=== PATIENT | female | born 1950 | race Caucasian/White ===

== ENCOUNTER 2021-03-18 03:02 | Emergency (ER) | payer MEDICARE, SELFPAY ==
--- NOTE | ~2021-03-18 | XR_ITS ---
EXAMINATION: XR CHEST CLINICAL INFORMATION: Dyspnea COMPARISON: None TECHNIQUE: Frontal view of the chest was obtained. FINDINGS: Lungs appear hyperinflated which may reflect underlying COPD. No evidence of pneumothorax, pulmonary edema, or pleural effusions. Cardiac size is within normal limits. Mild aortic calcification is noted. No acute osseous findings are seen. XR/XR chest 1V IMPRESSION: No acute cardiopulmonary findings. Hyperinflated lungs may reflect underlying COPD.
--- NOTE | 2021-03-18 03:06 | ED.WEAKNESS ---
HPI - Weakness General Stated complaint: GENERAL WEAKNESS/POSSIBLE MED REACTION? Time Seen by Provider: 03/18/21 03:04 Source: patient and EMS Mode of arrival: EMS Limitations: no limitations Related Data Allergies Allergy/AdvReac Type Severity Reaction Status Date / Time azithromycin [AZITHROMYCIN] Allergy Severe HIVES Unverified 02/07/20 15:08 ciprofloxacin [CIPROFLOXACIN] Allergy Severe FEET BLACK Unverified 02/07/20 15:08 erythromycin base Allergy Severe HIVES Unverified 02/07/20 15:08 [ERYTHROMYCIN BASE] Penicillins [PENICILLINS] Allergy Severe HIVES Unverified 02/07/20 15:08 sulfamethoxazole Allergy Severe HIVES Unverified 02/07/20 15:08 [From BACTRIM] trimethoprim [From BACTRIM] Allergy Severe HIVES Unverified 02/07/20 15:08
--- NOTE | 2021-03-18 03:13 | ECG_ITS ---
Test Reason : ALLERGIC REACTION Blood Pressure : / mmHG Vent. Rate : 077 BPM Atrial Rate : 077 BPM P-R Int : 188 ms QRS Dur : 122 ms QT Int : 444 ms P-R-T Axes : 083 092 088 degrees QTc Int : 502 ms Normal sinus rhythm Rightward axis Intra-ventricular conduction delay Left ventricular hypertrophy with QRS widening and repolarization abnormality ( [place] product ) Cannot rule out Septal infarct (cited on or before 01-JUL-2011) Abnormal ECG When compared with ECG of 01-JUL-2011 15:43, Significant changes have occurred Referred By: Priyanka Levi Electronically Signed By:TORREY COELHO MD
--- NOTE | 2021-03-18 03:15 | ED.ALLEREA ---
HPI - Allergic Reaction General Chief complaint: Allergic Reaction Stated complaint: GENERAL WEAKNESS/POSSIBLE MED REACTION? Time Seen by Provider: 03/18/21 03:04 Source: patient and EMS Mode of arrival: EMS Limitations: no limitations History of Present Illness MD complaint: allergic reaction and hives Onset (ago): hour(s) (1) Exposure: medication (just started diclofenac for her back last dose at 6pm) Symptoms: itching, facial swelling and difficulty breathing Severity: moderate Treatment prior to arrival: oxygen and other (tried her rescue inhaler without relief) Previous Allergic Reaction History: none Related Data Previous Rx's Medication Instructions Recorded famotidine 20 mg tablet (Pepcid) 20 mg PO DAILY #10 tab 03/18/21 prednisone 20 mg tablet 40 mg PO DAILY 4 Days #8 tab 03/18/21 Allergies Allergy/AdvReac Type Severity Reaction Status Date / Time azithromycin [AZITHROMYCIN] Allergy Severe HIVES Verified 03/18/21 03:39 ciprofloxacin [CIPROFLOXACIN] Allergy Severe FEET BLACK Verified 03/18/21 03:39 erythromycin base Allergy Severe HIVES Verified 03/18/21 03:39 [ERYTHROMYCIN BASE] Penicillins [PENICILLINS] Allergy Severe HIVES Verified 03/18/21 03:39 sulfamethoxazole Allergy Severe HIVES Verified 03/18/21 03:39 [From BACTRIM] trimethoprim [From BACTRIM] Allergy Severe HIVES Verified 03/18/21 03:39 Review of Systems Review of Systems: Constitutional : No Fever, No Chills ENT/Mouth : no oral swelling, No Hoarseness, No Swallowing Difficulty Eyes: No Eye Pain, pos Swelling, No Redness Cardiovascular : No Chest Pain, No SOB Respiratory : No Cough, No Sputum, No Wheezing, No Smoke Exposure, pos Dyspnea Gastrointestinal : No Nausea, No Vomiting, No Diarrhea, No abdominal Pain Genitourinary : No Dysuria, No Urinary Frequency, No Hematuria Musculoskeletal : No joint pain, No Myalgias, No Joint Swelling Skin : No Skin Lesions, positive rash Neuro : No Weakness, No Numbness, No Headache Psych : No Anxiety/Panic, No Depression Heme/Lymph: No Bruising, No Lymphadenopathy Endocrine : No Polyuria, No Polydipsia All other systems reviewed and are negative PMFSH Past Medical History Attestation statement: The following information was validated with the patient. Medical History Allergies Back pain Hearing loss Social History Social History (Updated 03/18/21 @ 03:18 by Priyanka Levi DO) Patient Tobacco Use Status: Former Tobacco user Advance Directives: No Advance Directives Information Provided: No Physical Exam Vital Signs: Vital Signs: Last Vital Signs Temp 97.6 F 03/18/21 03:17 Pulse 77 03/18/21 05:22 Resp 14 03/18/21 05:22 BP 106/63 03/18/21 05:22 Pulse Ox 97 03/18/21 05:22 Oxygen Flow Rate 3 03/18/21 03:17 Body Mass Index 21.9 Appearance: Alert. Oriented X3. No acute distress. Eyes: Pupils equal, round and reactive to light. ENT: Pharynx normal. no swelling, mild erythema and bilateral periorbital swelling Neck: Normal inspection. Neck supple. CVS: Normal heart rate and rhythm. Pulses normal. Respiratory: No respiratory distress. Breath sounds decreased Abdomen: Soft and nontender. Skin: Skin warm and dry. Normal skin color. on back and arms lacy faint erythematous rash Extremities: No lower extremity edema. No calf ttp Neuro: Oriented X 3. No motor deficit. No sensory deficit. Course Course Course Narrative: symptoms resolved, redness gone feels much better will continue to observe 98% on RA now all allergy symptoms have resolved no CP/SOB trop did rise to indeterminate range this could have been related to demand and her ischemia that resolved, she has no chest pain - will repeat trop at 730 if it remains flat doubt ACS MDM - Allergic Reaction MDM Narrative Medical decision making narrative: 70 yo female with hx of allergies reports she took diclofenac for her back at 6pm (just started yesterday) woke up feeling itchy and dizzy with diff breathing 1 hour prior to arrival. EMS found her 88% on RA. She has rash and is diminished at this time IV steroids, benadryl, pepcid, and neb treatment. Suspect allergy to diclofenac as cause of her symptoms Lab Data Result diagrams: 03/18/21 03:30 03/18/21 03:30 Labs: Lab Results 03/18/21 03/18/21 03/18/21 Range/Units 03:30 03:30 03:30 WBC 9.3 (4.8-10.8) X10*3/uL RBC 5.11 (4.20-5.50) X10*6/uL Hgb 16.6 H (12.0-16.0) g/dl Hct 48.3 H (37-47) % MCV 94.5 (80-98) fL MCH 32.5 (27.0-33.0) pg MCHC 34.4 (31.0-35.0) g/dl RDW 11.9 (11.0-16.0) % Plt Count 206 (160-400) X10*3/uL MPV 8.9 L (9.4-12.3) fL Immature Gran % (Auto) 0.5 H (0.0-0.4) % Neut % (Auto) 67.8 (45-73) % Lymph % (Auto) 23.0 (20-40) % [place] % (Auto) 5.3 (2-11) % Eos % (Auto) 2.9 (0-4) % Baso % (Auto) 0.5 (0-2) % Lymph # (Auto) 2.1 (1.2-4.9) X10*3/uL [place] # (Auto) 0.5 (0.1-1.2) X10*3/uL Eos # (Auto) 0.3 (0.0-0.4) X10*3/uL Baso # (Auto) 0.1 (0.0-0.2) X10*3/uL Abs Immat Gran (auto) 0.05 H (0.00-0.03) X10*3/uL Absolute Neuts (auto) 6.3 (2.0-8.3) X10*3/uL Absolute Nucleated RBC 0.000 (0.0-0.012) X10*3/uL Nucleated RBC % (auto) 0.0 (0.0-0.2) /100WBC Sodium 141 (135-145) mmol/L Potassium 3.9 (3.3-5.1) mmol/L Chloride 107 (96-108) mmol/L Carbon Dioxide 23 (22-29) mmol/L Anion Gap 15 (12-20) BUN 17 H (9-16) mg/dL Creatinine 0.95 (0.5-1.4) mg/dL Estim Creat Clear Calc 42.2 Estimated GFR 58 Random Glucose 181 H (60-115) mg/dL Calcium 8.9 (8.4-10.2) mg/dL Magnesium 2.1 (1.6-2.6) mg/dL Total Bilirubin 0.5 (0.0-1.0) mg/dL Direct Bilirubin 0.2 (0.0-0.5) mg/dL AST 15 (5-31) U/L ALT 12 (0-31) U/L Alkaline Phosphatase 114 (39-117) U/L Troponin I High Sens 4.6 (<3.5-17.0) ng/L B-Natriuretic Peptide < 10 (<100) pg/mL Total Protein 6.2 L (6.5-8.0) g/dL Albumin 4.0 (3.5-5.0) g/dL COVID-19 ([facility]) (Negative) COVID-19 Clin Com 03/18/21 03/18/21 Range/Units 03:30 05:26 WBC (4.8-10.8) X10*3/uL RBC (4.20-5.50) X10*6/uL Hgb (12.0-16.0) g/dl Hct (37-47) % MCV (80-98) fL MCH (27.0-33.0) pg MCHC (31.0-35.0) g/dl RDW (11.0-16.0) % Plt Count (160-400) X10*3/uL MPV (9.4-12.3) fL Immature Gran % (Auto) (0.0-0.4) % Neut % (Auto) (45-73) % Lymph % (Auto) (20-40) % [place] % (Auto) (2-11) % Eos % (Auto) (0-4) % Baso % (Auto) (0-2) % Lymph # (Auto) (1.2-4.9) X10*3/uL [place] # (Auto) (0.1-1.2) X10*3/uL Eos # (Auto) (0.0-0.4) X10*3/uL Baso # (Auto) (0.0-0.2) X10*3/uL Abs Immat Gran (auto) (0.00-0.03) X10*3/uL Absolute Neuts (auto) (2.0-8.3) X10*3/uL Absolute Nucleated RBC (0.0-0.012) X10*3/uL Nucleated RBC % (auto) (0.0-0.2) /100WBC Sodium (135-145) mmol/L Potassium (3.3-5.1) mmol/L Chloride (96-108) mmol/L Carbon Dioxide (22-29) mmol/L Anion Gap (12-20) BUN (9-16) mg/dL Creatinine (0.5-1.4) mg/dL Estim Creat Clear Calc Estimated GFR Random Glucose (60-115) mg/dL Calcium (8.4-10.2) mg/dL Magnesium (1.6-2.6) mg/dL Total Bilirubin (0.0-1.0) mg/dL Direct Bilirubin (0.0-0.5) mg/dL AST (5-31) U/L ALT (0-31) U/L Alkaline Phosphatase (39-117) U/L Troponin I High Sens 26.6 H* D (<3.5-17.0) ng/L B-Natriuretic Peptide (<100) pg/mL Total Protein (6.5-8.0) g/dL Albumin (3.5-5.0) g/dL COVID-19 ([facility]) Negative (Negative) COVID-19 Clin Com See Note ECG Data Attestation: I personally reviewed and interpreted this ECG as follows: ECG interpretation time: 03:26 Interpretation: Rate: 77 Rhythm: NSR [place]: normal Normal P waves. Normal TAL. LBBB ST T wave : nonspecific, no TERESITA qTC: normal prior studies: changed from 2012 The study has been interpreted contemporaneously by me. . Discharge Plan Discharge Clinical Impression: Urticaria, Acute bronchospasm Allergic reaction Qualifiers: Encounter type: initial encounter Qualified Code(s): T78.40XA - Allergy, unspecified, initial encounter Patient Disposition: Home, Self-Care Instructions: Urticaria (ED), Bronchospasm (ED), General Allergic Reaction (ED) Additional Instructions: return to ED for any worsening symptoms or concerns avoid diclofenac at this time Prescriptions: New prednisone 20 mg tablet 40 mg PO DAILY 4 Days Qty: 8 RF: 0 famotidine [Pepcid] 20 mg tablet 20 mg PO DAILY Qty: 10 RF: 0 Referrals: Corey Berger MD [Primary Care Provider] - 2 days
[2021-03-18 03:17] VITALS: BP 113/73; BP 122/76; PULSE 71; PULSE 75; RESP 20; TEMP 36.4; O2SAT 98; O2SAT 99; BMI 21.9
[2021-03-18 03:36] VITALS: PULSE 75; O2SAT 97
[2021-03-18] MEDS: Albuterol Sulfate (0.083%) 2.5 MG/3 ML VIAL.NEB INHALE (03:36)
[2021-03-18 03:40] LABS: MANUAL DIFF FLAG NO
[2021-03-18] MEDS: Famotidine/PF 20 MG/2 ML VIAL IVPUSH (03:40)
[2021-03-18 03:41] LABS: Basophils Absolute Auto 0.1 X10*3/uL (0.0-0.2); Basophils Percent Auto 0.5 % (0-2); Eosinophils Absolute Auto 0.3 X10*3/uL (0.0-0.4); Eosinophils Percent Auto 2.9 % (0-4); Hematocrit 48.3 % (37-47); Hemoglobin 16.6 g/dl (12.0-16.0); Imm Gran Abs Auto 0.05 X10*3/uL (0.00-0.03); Imm Gran Pct Auto 0.5 % (0.0-0.4); Lymphocytes Absolute Auto 2.1 X10*3/uL (1.2-4.9); Mean Corpuscular HGB Conc 34.4 g/dl (31.0-35.0); Mean Corpuscular Hemoglobin 32.5 pg (27.0-33.0); Mean Corpuscular Volume 94.5 fL (80-98); Mean Platelet Volume 8.9 fL (9.4-12.3); Monocytes Absolute Auto 0.5 X10*3/uL (0.1-1.2); Monocytes Percent Auto 5.3 % (2-11); Neutrophils Absolute Auto 6.3 X10*3/uL (2.0-8.3); Neutrophils Percent Auto 67.8 % (45-73); Platelet Count 206 X10*3/uL (160-400); Red Blood Count 5.11 X10*6/uL (4.20-5.50); Red Cell Distribution Width 11.9 % (11.0-16.0); White Blood Count 9.3 X10*3/uL (4.8-10.8)
[2021-03-18] MEDS: methylPREDNISolone Sod Succ 125 MG/2 ML VIAL IVPUSH (03:43)
[2021-03-18] MEDS: diphenhydrAMINE HCL 50 MG/ML VIAL 25 MG IVPUSH (03:43)
[2021-03-18 03:49] LABS: COVID-19 Test Negative (Negative); IDNOW Serial# 9DD0AD1C
[2021-03-18 04:11] LABS: B Type Natriuretic Peptide < 10 pg/mL (<100); Troponin-I High Sensitivity 4.6 ng/L (<3.5-17.0)
[2021-03-18 04:12] LABS: Alanine Aminotransferase 12 U/L (0-31); Alkaline Phosphatase 114 U/L (39-117); Anion Gap 15 (12-20); Aspartate Amino Transferase 15 U/L (5-31); Bilirubin Direct 0.2 mg/dL (0.0-0.5); Bilirubin Total 0.5 mg/dL (0.0-1.0); Blood Urea Nitrogen 17 mg/dL (9-16); Calcium 8.9 mg/dL (8.4-10.2); Carbon Dioxide 23 mmol/L (22-29); Chloride 107 mmol/L (96-108); Creatinine Clr Calc Pharmacy 42.2; Estimated Glomerular Filt Rate 58; Glucose Random 181 mg/dL (60-115); Magnesium 2.1 mg/dL (1.6-2.6); Potassium 3.9 mmol/L (3.3-5.1); Sodium 141 mmol/L (135-145); Total Protein 6.2 g/dL (6.5-8.0)
[2021-03-18 05:22] VITALS: BP 106/63; PULSE 77; RESP 14; O2SAT 97
[2021-03-18 06:19] LABS: Troponin-I High Sensitivity 26.6 ng/L (<3.5-17.0)
[2021-03-18 07:30] VITALS: BP 121/63; PULSE 75; RESP 19; TEMP 37; O2SAT 96
[2021-03-18 08:05] LABS: Troponin-I High Sensitivity 37.3 ng/L (<3.5-17.0)
[2021-03-18 08:17] VITALS: BP 111/58; PULSE 73; RESP 20; O2SAT 96
--- NOTE | 2021-03-18 09:01 | CA_ITS ---
Transthoracic Echocardiogram Patient (Last, First, Middle): Annalisa Cruz, Gender: Female Date of : 1950 Age: 70 Procedure Date: 03/18/2021 Procedure Type: Transthoracic Echocardiogram Location: ER Height: 152.4 cm Weight: 52.62 kg BSA: 1.48 m2 Heart Rate: bpm BP: 111 / 58 mmHg [employer] Furnace Tender: Referring MD: Tushar Urban MD Symptoms: New left bundle branch block with elevated troponin Study Quality: Fair ECG Rhythm: Sinus, LBBB Conclusions: - Normal left ventricular size and systolic function. - There is mildly increased left ventricular wall thickness. - The visually estimated ejection fraction is between 60-65%. - Normal right ventricular cavity size and systolic function. Findings Left Ventricle Normal left ventricular size and systolic function. There is mildly increased left ventricular wall thickness. The visually estimated ejection fraction is between 60-65%. There is no evidence of regional wall motion abnormalities. There is paradoxical septal motion consistent with a left bundle branch block. Diastolic function is indeterminate on the basis of available data. Right Ventricle Normal right ventricular cavity size and systolic function. Pericardium/Pleural There is no evidence of pericardial effusion. Prior Study Comparison No prior study available for comparison. Measurements 2D Linear Measurements IVSd: 1.08 0.6-0.9/0.6-1.0 cm LVIDd: 3.51 3.9-5.3/4.2-5.9 cm LVIDd Index: 2.37 2.4-3.2/2.2-3.1 cm/m2 LVIDs: 2.24 2.0-3.6 cm LVPWd: 1.08 0.7-1.1 cm LV Mass: 144.60 67-162/88-224 g LV Mass Index: 97.70 43-95/49-115 g/m2 2D Systolic Function EF 4C: 58.60 >55% EF 2C: 60.50 >55% EF BiP: 60.80 >55% Updated in Other Vendor System with Status of Final Quinton Benjamin MD electronically signed on 03/18/2021 2:22:14 PM with status of Final
[2021-03-18 10:09] VITALS: BP 129/74; PULSE 91; RESP 20; O2SAT 97
--- NOTE | 2021-03-18 10:27 | PC.NURSE ---
Bed side echo being performed. Son called for ride for pending discharge home.
== END 2021-03-18 11:06 | disposition home or self-care (01) ==
PROVIDERS: Emergency Provider Emergency Medicine; PCP Internal Medicine
DX: L50.0 Allergic urticaria (principal); J98.01 Acute bronchospasm; T78.40XA Allergy, unspecified, initial encounter; X58.XXXA Exposure to other specified factors, initial encounter; I44.7 Left bundle-branch block, unspecified; Z20.822 Contact with and (suspected) exposure to COVID-19
CPT/HCPCS: 36415; 71045; 80048; 80076; 83735; 83880; 84484; 85025; 87635; 93005; 93308; 94640; 96374; 96375; 99284; J1200; J2930

== ENCOUNTER 2021-09-22 13:51 | Emergency (ER) | payer MEDICARE, SELFPAY ==
[2021-09-22 14:31] VITALS: BP 132/69; PULSE 79; RESP 18; TEMP 36.9; O2SAT 99; BMI 22.4
[2021-09-22 14:56] LABS: MANUAL DIFF FLAG NO
[2021-09-22 14:59] LABS: Basophils Absolute Auto 0.1 X10*3/uL (0.0-0.2); Basophils Percent Auto 0.9 % (0-2); Eosinophils Absolute Auto 0.2 X10*3/uL (0.0-0.4); Eosinophils Percent Auto 3.1 % (0-4); Hematocrit 44.5 % (37.0-47.0); Imm Gran Abs Auto 0.01 X10*3/uL (0.00-0.03); Imm Gran Pct Auto 0.1 % (0.0-0.4); Lymphocytes Absolute Auto 2.1 X10*3/uL (1.2-4.9); Lymphocytes Percent Auto 28.6 % (20-40); Mean Corpuscular HGB Conc 33.7 g/dl (31.0-35.0); Mean Corpuscular Volume 94.9 fL (80.0-98.0); Mean Platelet Volume 9.4 fL (9.4-12.3); Monocytes Absolute Auto 0.5 X10*3/uL (0.1-1.2); Monocytes Percent Auto 7.2 % (2-11); Neutrophils Absolute Auto 4.5 x10*3/uL (2.0-8.3); Neutrophils Percent Auto 60.1 % (45-73); Platelet Count 200 X10*3/uL (160-400); Red Blood Count 4.69 X10*6/uL (4.20-5.50); Red Cell Distribution Width 11.9 % (11.0-16.0); White Blood Count 7.4 X10*3/uL (4.8-10.8)
[2021-09-22 15:12] LABS: Anion Gap 11 (12-20); Blood Urea Nitrogen 8 mg/dL (9-16); Carbon Dioxide 28 mmol/L (22-29); Chloride 109 mmol/L (96-108); Creatinine Clr Calc Pharmacy 50.7; Estimated Glomerular Filt Rate > 60; Glucose Random 97 mg/dL (60-115); Potassium 4.9 mmol/L (3.3-5.1); Sodium 143 mmol/L (135-145)
[2021-09-22 15:16] LABS: Appearance Urine CLEAR; Color Urine YELLOW; Glucose Urine UA NEG (NEG); Leukocyte Esterase Urine NEG (NEG); Nitrite Urine NEG (NEG); Specific Gravity - Urine <= 1.005 (1.005-1.025); UACC Culture Trigger NO; Urine Blood TRACE (NEG); Urine Ketones NEG (NEG); Urine Protein NEG (NEG-TRACE)
[2021-09-22 15:28] LABS: RBC Urine 0-2 /HPF (0); Squamous Epithelial Cell Urine TRACE /LPF; WBC Urine 0 /HPF (0-4)
== END 2021-09-22 22:39 | disposition left against medical advice (07) ==
LOC: HO.ED 22:34
PROVIDERS: Emergency Provider Emergency Medicine; PCP Internal Medicine
DX: R10.30 Lower abdominal pain, unspecified (principal); K62.5 Hemorrhage of anus and rectum; R35.0 Frequency of micturition; Z79.899 Other long term (current) drug therapy
CPT/HCPCS: 36415; 80048; 81001; 85025; 99283

== ENCOUNTER 2021-09-23 14:47 | Emergency (ER) | payer MEDICARE, SELFPAY ==
--- NOTE | ~2021-09-23 | CT_ITS ---
EXAMINATION: CT ABDOMEN AND PELVIS WITH CONTRAST CLINICAL INFORMATION: Left lower quadrant pain COMPARISON: None TECHNIQUE: Multidetector volumetric images were obtained from the superior aspect of the liver through the pubic symphysis following administration 85 mL of Omnipaque 350 intravenous contrast. Sagittal and coronal reformatted images were obtained on the technologist's workstation. Oral contrast: No This CT examination was performed using dose optimization techniques as appropriate, variously including the following: *Automated exposure control *Adjustment of mA and/or kV according to patient size (this includes techniques or standardized protocols for targeted exams where dose is matched to indication/reason for exam; i.e. extremities or head) *Use of iterative reconstruction technique DLP: 359 mGy-cm FINDINGS: LUNG BASES: There is bibasilar atelectatic changes. The heart size is normal. LIVER, GALLBLADDER, AND BILIARY TREE: The liver is normal in size, shape, and attenuation. No focal hepatic lesion or biliary ductal dilatation is present. There is solitary dependent radiopaque 7 mm gallstone without wall thickening or pericholecystic fluid collection. PANCREAS: Unremarkable. SPLEEN: Spleen is borderline enlarged measuring 12 cm. ADRENAL GLANDS: Bilateral adrenal glands are symmetrical and normal. KIDNEYS AND URETERS: The kidneys are normal in size, shape, and attenuation. There is a 5 mm nonobstructive radiopaque calculi lower pole left kidney. There is a nonenhancing 1.7 cm cyst left kidney lower pole. There is no hydronephrosis. BLADDER: The bladder is distended. GASTROINTESTINAL TRACT: There is a large amount of stool, diverticuli and gas in colon with minimal mural thickening involving the sigmoid colon but no pericolic fat stranding. Slightly prominent fluid-filled small bowel loops are seen without distention. Appendix is not visualized. ABDOMINAL WALL: There is no evidence of hernia. LYMPH NODES: No abnormal pelvic or retroperitoneal lymph nodes seen. VASCULAR: The abdominal aorta is of normal caliber. IVC is normal. There is significant a dilated splenic vein and inferior mesenteric vein extending all the way into the pelvis. This could be secondary to portal venous hypertension, pelvic venous congestion or avascular malformation. There are multiple collateral vessels seen in the spleen which are enlarged raising the possibility of portal venous hypertension. PELVIC VISCERA: Uterus is not visualized. No adnexal mass or free fluid. OSSEOUS STRUCTURES: Degenerative disc changes and spondylosis throughout lumbar spine sparing L5-S1 disc level. There is mild scoliosis.. CT/CT abdomen pelvis w con IMPRESSION: Enlarged portal vein, splenic collaterals and IMV extending into the pelvis. Question portal venous hypertension or pelvic venous congestion. There is mild splenomegaly and collaterals in the splenic hilum most suspicious for portal venous hypertension. Ultrasound can check for portal venous flow. Colonic diverticulosis with mild mural thickening of the sigmoid colon but no pericolic fat stranding question early diverticulitis. Nonobstructive radiopaque calculi and a cyst lower pole left kidney. Cholelithiasis without wall thickening. Fleischner guidelines were followed.
[2021-09-23 15:06] VITALS: BP 140/60; PULSE 86; RESP 18; TEMP 36.6; O2SAT 98; BMI 19.8
[2021-09-23 15:13] LABS: MANUAL DIFF FLAG NO
[2021-09-23 15:16] LABS: Basophils Absolute Auto 0.1 X10*3/uL (0.0-0.2); Eosinophils Absolute Auto 0.3 X10*3/uL (0.0-0.4); Eosinophils Percent Auto 3.9 % (0-4); Hematocrit 42.2 % (37.0-47.0); Hemoglobin 14.6 g/dl (12.0-16.0); Imm Gran Abs Auto 0.02 X10*3/uL (0.00-0.03); Imm Gran Pct Auto 0.3 % (0.0-0.4); Lymphocytes Percent Auto 29.1 % (20-40); Mean Corpuscular HGB Conc 34.6 g/dl (31.0-35.0); Mean Corpuscular Volume 95.3 fL (80.0-98.0); Mean Platelet Volume 9.3 fL (9.4-12.3); Monocytes Absolute Auto 0.6 X10*3/uL (0.1-1.2); Monocytes Percent Auto 9.1 % (2-11); Neutrophils Absolute Auto 3.9 x10*3/uL (2.0-8.3); Neutrophils Percent Auto 56.6 % (45-73); Platelet Count 199 X10*3/uL (160-400); Red Blood Count 4.43 X10*6/uL (4.20-5.50); Red Cell Distribution Width 11.9 % (11.0-16.0); White Blood Count 6.9 X10*3/uL (4.8-10.8)
[2021-09-23 15:30] LABS: Alanine Aminotransferase 12 U/L (0-31); Albumin Level 4.5 g/dL (3.5-5.0); Alkaline Phosphatase 65 U/L (39-117); Anion Gap 10 (12-20); Aspartate Amino Transferase 14 U/L (5-31); Bilirubin Total 0.5 mg/dL (0.0-1.0); Blood Urea Nitrogen 10 mg/dL (9-16); Calcium 9.9 mg/dL (8.4-10.2); Carbon Dioxide 29 mmol/L (22-29); Chloride 108 mmol/L (96-108); Creatinine Clr Calc Pharmacy 52.7; Estimated Glomerular Filt Rate > 60; Glucose Random 134 mg/dL (60-115); Sodium 143 mmol/L (135-145)
[2021-09-23 16:00] VITALS: BP 145/66; PULSE 65; RESP 16; O2SAT 96
--- NOTE | 2021-09-23 16:16 | ED.ABDPAIN ---
HPI - Abdominal Pain General Chief Complaint: Abdominal Pain Stated Complaint: abd pain Time Seen by Provider: 09/23/21 16:05 Source: patient Mode of arrival: ambulatory Limitations: no limitations History of Present Illness HPI narrative: pt comes to the ED c/o abdominal pain. Patient states the pain has been present for about 7 days, constant. Today, patient had 1 episode of diarrhea. Patient states that because of the pain she has been nauseous. Patient denies fever chills, no URI or UTI symptoms. Related Data Previous Rx's Medication Instructions Recorded famotidine 20 mg tablet (Pepcid) 20 mg PO DAILY #10 tab 03/18/21 prednisone 20 mg tablet 40 mg PO DAILY 4 Days #8 tab 03/18/21 cefuroxime axetil 250 mg tablet 250 mg PO BID #19 tab 09/23/21 metronidazole 250 mg tablet 250 mg PO BID #19 tab 09/23/21 Allergies Allergy/AdvReac Type Severity Reaction Status Date / Time azithromycin [AZITHROMYCIN] Allergy Severe HIVES Verified 09/22/21 14:31 ciprofloxacin [CIPROFLOXACIN] Allergy Severe FEET BLACK Verified 09/22/21 14:31 erythromycin base Allergy Severe HIVES Verified 09/22/21 14:31 [ERYTHROMYCIN BASE] Penicillins [PENICILLINS] Allergy Severe HIVES Verified 09/22/21 14:31 sulfamethoxazole Allergy Severe HIVES Verified 09/22/21 14:31 [From BACTRIM] trimethoprim [From BACTRIM] Allergy Severe HIVES Verified 09/22/21 14:31 Review of Systems Review of Systems Constitutional : No Weight loss, No Fever, No Chills, No Night Sweats, No Fatigue, No Malaise ENT/Mouth : No Hearing loss, No Ear Pain, No Nasal Congestion, No Sinus Pain, No Hoarseness, No sore throat, No Rhinorrhea, No Swallowing Difficulty Eyes: No Eye Pain, No Swelling, No Redness, No Foreign Body, No Discharge, No Vision Changes Cardiovascular : No Chest Pain, No SOB, No Dyspnea on Exertion, No Orthopnea, No Edema, No Palpitations Respiratory : No Cough, No Sputum, No Wheezing, No Smoke Exposure, No Dyspnea Gastrointestinal : Complaining of nausea, no vomiting, 1 episode of diarrhea. Complaining of left lower quadrant pain, constant nonradiating. Genitourinary : no irregular bleeding, No Dysuria, No Urinary Frequency, No Hematuria, No Urinary Incontinence, No Urgency, No Flank Pain, No Urinary Flow Changes, No Hesitancy Musculoskeletal : No joint pain, No Myalgias, No Joint Swelling Skin : No Skin Lesions, No rash Neuro : No Weakness, No Numbness, No Paresthesias, No Loss of Consciousness, No Dizziness, No Headache Psych : No Anxiety/Panic, No Depression, No SI/HI/AH/VH, No Social Issues, Heme/Lymph: No Bruising, No Bleeding,No Lymphadenopathy Endocrine : No Polyuria, No Polydipsia, No Temperature Intolerance [facility] Past Medical History Medical History Allergies Back pain Hearing loss Social History Social History (Updated 03/18/21 @ 03:18 by Priyanka Levi DO) Alcohol intake: unknown Patient Tobacco Use Status: Former Tobacco user Use of substances other than those prescribed or required for medical reasons: No Advance Directives: No Advance Directives Information Provided: No Physical Exam ED Vital Signs: Vital Signs - 24 hr 09/23/21 15:06 09/23/21 16:00 09/23/21 18:00 Temperature 98 F Pulse Rate 86 65 70 Respiratory Rate 18 16 16 Blood Pressure 140/60 H 145/66 H 126/70 Pulse Oximetry 98 96 94 BMI result Body Mass Index 19.8 Const Other: Appearance: Alert. Oriented X3. No acute distress. Eyes: Pupils equal, round and reactive to light. ENT: Pharynx normal. Very hard of hearing Neck: Normal inspection. Neck supple. No lymph nodes noted. No crepitus CVS: Normal heart rate and rhythm. Pulses normal. Normal S1 and S2 Respiratory: No respiratory distress. Breath sounds normal. No Wheezing. No rales Abdomen: Soft, tenderness to palpation in left lower quadrant, no rebound, no guarding Skin: Skin warm and dry. Normal skin color. Normal skin turgor. Extremities: No lower extremity edema. No Lacerations. No Rash Neuro: Oriented X 3. No motor deficit. No sensory deficit. Moving all extremities. No slurred speech. CN 2 through 12 grossly intact Psych: calm, cooperative, normal affect Course Course Course Narrative: I discussed the labs with the patient. Next step, we will go ahead and get a CT scan. Patient likely has colitis versus diverticulitis. Patient getting IV fluids, Zofran and morphine. I discussed the CT scan findings and labs with the patient. Patient possibly has beginning of diverticulitis. Given that the patient has been symptomatic for 1 week, we will go ahead and treat her. Also, I discussed with the patient that she may have portal hypertension, patient does not have ascites. 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 Patient has allergies to azithromycin, fluoroquinolones, penicillins. Patient gets a rash with penicillin. Not ideal, but we will give her p.o. cefuroxime and metronidazole. MDM - Abdominal Pain Lab Data Result diagrams: 09/23/21 15:09 09/23/21 15:09 Labs: Lab Results 09/23/21 09/23/21 Range/Units 15:09 15:09 WBC 6.9 (4.8-10.8) X10*3/uL RBC 4.43 (4.20-5.50) X10*6/uL Hgb 14.6 (12.0-16.0) g/dl Hct 42.2 (37.0-47.0) % MCV 95.3 (80.0-98.0) fL MCH 33.0 (27.0-33.0) pg MCHC 34.6 (31.0-35.0) g/dl RDW 11.9 (11.0-16.0) % Plt Count 199 (160-400) X10*3/uL MPV 9.3 L (9.4-12.3) fL Immature Gran % (Auto) 0.3 (0.0-0.4) % Neut % (Auto) 56.6 (45-73) % Lymph % (Auto) 29.1 (20-40) % [place] % (Auto) 9.1 (2-11) % Eos % (Auto) 3.9 (0-4) % Baso % (Auto) 1.0 (0-2) % Lymph # (Auto) 2.0 (1.2-4.9) X10*3/uL [place] # (Auto) 0.6 (0.1-1.2) X10*3/uL Eos # (Auto) 0.3 (0.0-0.4) X10*3/uL Baso # (Auto) 0.1 (0.0-0.2) X10*3/uL Abs Immat Gran (auto) 0.02 (0.00-0.03) X10*3/uL Absolute Neuts (auto) 3.9 (2.0-8.3) x10*3/uL Absolute Nucleated RBC 0.000 (0.0-0.012) X10*3/uL Nucleated RBC % (auto) 0.0 (0.0-0.2) /100WBC Sodium 143 (135-145) mmol/L Potassium 4.0 (3.3-5.1) mmol/L Chloride 108 (96-108) mmol/L Carbon Dioxide 29 (22-29) mmol/L Anion Gap 10 L (12-20) BUN 10 (9-16) mg/dL Creatinine 0.82 (0.5-1.4) mg/dL Estim Creat Clear Calc 52.7 Estimated GFR > 60 Random Glucose 134 H (60-115) mg/dL Calcium 9.9 (8.4-10.2) mg/dL Total Bilirubin 0.5 (0.0-1.0) mg/dL AST 14 (5-31) U/L ALT 12 (0-31) U/L Alkaline Phosphatase 65 D (39-117) U/L Total Protein 7.0 (6.5-8.0) g/dL Albumin 4.5 (3.5-5.0) g/dL Lipase 54 (8-78) U/L Imaging Data CT scan - abdomen: Radiologist's impression: FINDINGS: LUNG BASES: There is bibasilar atelectatic changes. The heart size is normal.? LIVER, GALLBLADDER, AND BILIARY TREE: The liver is normal in size, shape, and attenuation. No focal hepatic lesion or biliary ductal dilatation is present. There is solitary dependent radiopaque 7 mm gallstone without wall thickening or pericholecystic fluid collection. PANCREAS: Unremarkable.? SPLEEN: Spleen is borderline enlarged measuring 12 cm.? ADRENAL GLANDS: Bilateral adrenal glands are symmetrical and normal.? KIDNEYS AND URETERS: The kidneys are normal in size, shape, and attenuation. There is a 5 mm nonobstructive radiopaque calculi lower pole left kidney. There is a nonenhancing 1.7 cm cyst left kidney lower pole. There is no hydronephrosis.? BLADDER: The bladder is distended. GASTROINTESTINAL TRACT: There is a large amount of stool, diverticuli and gas in colon with minimal mural thickening involving the sigmoid colon but no pericolic fat stranding. Slightly prominent fluid-filled small bowel loops are seen without distention. Appendix is not visualized. ? ABDOMINAL WALL: There is no evidence of hernia.? LYMPH NODES: No abnormal pelvic or retroperitoneal lymph nodes seen. VASCULAR: The abdominal aorta is of normal caliber. IVC is normal. There is significant a dilated splenic vein and inferior mesenteric vein extending all the way into the pelvis. This could be secondary to portal venous hypertension, pelvic venous congestion or avascular malformation. There are multiple collateral vessels seen in the spleen which are enlarged raising the possibility of portal venous hypertension. PELVIC VISCERA: Uterus is not visualized. No adnexal mass or free fluid. OSSEOUS STRUCTURES: Degenerative disc changes and spondylosis throughout lumbar spine sparing L5-S1 disc level. There is mild scoliosis..? CT/CT abdomen pelvis w con IMPRESSION: Enlarged portal vein, splenic collaterals and IMV extending into the pelvis. Question portal venous hypertension or pelvic venous congestion. There is mild splenomegaly and collaterals in the splenic hilum most suspicious for portal venous hypertension. Ultrasound can check for portal venous flow. ? Colonic diverticulosis with mild mural thickening of the sigmoid colon but no pericolic fat stranding question early diverticulitis. ? Nonobstructive radiopaque calculi and a cyst lower pole left kidney. ? Cholelithiasis without wall thickening. ? Fleischner guidelines were followed. Discharge Plan Discharge Clinical Impression: Colitis Patient Disposition: Home, Self-Care Instructions: Colitis (ED) Additional Instructions: Please follow-up with your primary care physician tomorrow. If you have any worsening or new symptoms, please return to the emergency room or call 911 Prescriptions: New cefuroxime axetil 250 mg tablet 250 mg PO BID Qty: 19 0RF metronidazole 250 mg tablet 250 mg PO BID Qty: 19 0RF No Action prednisone 20 mg tablet 40 mg PO DAILY 4 Days Qty: 8 0RF famotidine [Pepcid] 20 mg tablet 20 mg PO DAILY Qty: 10 0RF
[2021-09-23] MEDS: iohexoL 350 MG/ML 100 ML INFUS..BTL IV (17:38)
[2021-09-23] MEDS: ondansetron HCL 4 MG/2 ML VIAL IVPUSH (17:53)
[2021-09-23] MEDS: Morphine Sulfate 2 MG/ML CARTRIDGE 1 MG IVPUSH (17:53)
[2021-09-23] MEDS: 0.9 % Sodium Chloride 1,000 ML 999 ML IVCONT (17:53)
[2021-09-23 18:00] VITALS: BP 126/70; PULSE 70; RESP 16; O2SAT 94
[2021-09-23 18:28] LABS: Lipase 54 U/L (8-78)
--- NOTE | 2021-09-23 18:43 | PC.NURSE ---
pt a&ox3, vss, pt denies pain at this time. 20G IV R wrist. IVF finished and disconnected. CT results pending.
[2021-09-23] MEDS: metroNIDAZOLE 250 MG TABLET PO (19:34)
== END 2021-09-23 19:37 | disposition home or self-care (01) ==
PROVIDERS: Emergency Provider Emergency Medicine; PCP Internal Medicine
DX: K52.9 Noninfective gastroenteritis and colitis, unspecified (principal); Z88.0 Allergy status to penicillin; Z88.1 Allergy status to other antibiotic agents
CPT/HCPCS: 36415; 74177; 80053; 83690; 85025; 96361; 96374; 96375; 99284; J2270; J2405; Q9967

== ENCOUNTER 2024-01-27 15:02 | Emergency (ER) | payer MEDICARE, SELFPAY ==
--- NOTE | ~2024-01-27 | CT_ITS ---
EXAMINATION: CT ABDOMEN AND PELVIS WITHOUT IV CONTRAST CLINICAL INFORMATION: Diverticulitis COMPARISON: CT abdomen/pelvis September 23, 2021 TECHNIQUE: Multiple axial images were obtained from the superior aspect of the liver through the pubic symphysis without intravenous contrast. Images were evaluated on independent dedicated 3-D workstation and 3-D images were reconstructed with concurrent radiologist supervision and subsequently interpreted. Oral contrast was not administered. This CT examination was performed using dose optimization techniques as appropriate, variously including the following: *Automated exposure control *Adjustment of mA and/or kV according to patient size (this includes techniques or standardized protocols for targeted exams where dose is matched to indication/reason for exam; i.e. extremities or head) *Use of iterative reconstruction technique DLP: 385 mGy-cm FINDINGS: LUNG BASES: Linear atelectasis CARDIOMEDIASTINUM: The visualized heart is normal in size without pericardial effusion. No coronary artery calcification. LIVER: Homogeneous in attenuation. Normal in size. GALLBLADDER: Dependently layering cholelithiasis. Noninflamed. BILIARY SYSTEM: No intrahepatic or extrahepatic biliary dilation. PANCREAS: Homogeneous in attenuation. SPLEEN: Normal in size. GENITOURINARY: No contour deforming masses. No perinephric fluid collection. Nonobstructing 3 mm left lower pole renal calculus. Left lower pole simple renal cysts; no follow-up needed. No hydroureteronephrosis. ADRENAL GLANDS: Unremarkable. REPRODUCTIVE: Uterus and and bilateral adnexa are unremarkable. GASTROINTESTINAL: The visualized alimentary tract is normal in course. Questionable colonic wall thickening along the proximal sigmoid. Severe diverticular disease of the distal descending and sigmoid colon No evidence of obstruction. APPENDIX: The appendix is seen in its entirety and is unremarkable. PERITONEUM: No pneumoperitoneum. No intra-abdominal fluid collection. VASCULATURE: No abdominal aortic aneurysm. LYMPH NODES: No pathologically enlarged abdominal or pelvic lymph nodes. SOFT TISSUES/MUSCULOSKELETAL: Compression deformity of T9 vertebral body. Dextroscoliosis and degenerative changes. CT/CT abdomen pelvis wo IV con IMPRESSION: 1. Though limited study due to lack of intravenous contrast, suspected diverticulitis in the proximal sigmoid colon. No obvious large abscess on this limited study. 2. Nonobstructing left lower pole renal calculus. Fleischner guidelines were followed. Electronically signed by: Tc Brown DO 01/27/2024 10:56 PM EDT RP
[2024-01-27 15:28] VITALS: BP 142/65; PULSE 76; RESP 18; TEMP 36.8; O2SAT 98; BMI 23.0
--- NOTE | 2024-01-27 15:28 | ED_ITS ---
HPI - General Adult General Chief complaint: Urogenital-Female Stated complaint: stomach pain, uti Time Seen by Provider: 01/27/24 20:35 Source: patient Mode of arrival: ambulatory Limitations: no limitations History of Present Illness ED Provider: dunia MACHADO narrative: Patient's history of diverticulosis complaining of dysuria and frequency for last 3- 4 days along with left lower abdominal pain with slight nausea no vomiting no fever no chills no history of any blood in his stool no history of diverticulitis in the past no history of kidney stone Related Data Previous Rx's ?Medication ?Instructions ?Recorded famotidine 20 mg tablet (Pepcid) 20 mg PO DAILY #10 tabs 03/18/21 prednisone 20 mg tablet 40 mg (2 x 20 mg) PO DAILY 4 days 03/18/21 #8 tabs cefuroxime axetil 250 mg tablet 250 mg PO BID #19 tabs 09/23/21 metronidazole 250 mg tablet 250 mg PO BID #19 tabs 09/23/21 cefuroxime axetil 500 mg tablet 500 mg PO BID 10 days #20 tabs 01/28/24 metronidazole 500 mg tablet 500 mg PO TID #30 tabs 01/28/24 tramadol 50 mg tablet 50 mg PO Q8-10H PRN pain #12 tabs 01/28/24 Allergies Allergy/AdvReac Type Severity Reaction Status Date / Time azithromycin [AZITHROMYCIN] Allergy Severe HIVES Verified 01/27/24 15:29 ciprofloxacin [CIPROFLOXACIN] Allergy Severe FEET BLACK Verified 01/27/24 15:29 erythromycin base Allergy Severe HIVES Verified 01/27/24 15:29 [ERYTHROMYCIN BASE] Penicillins [PENICILLINS] Allergy Severe HIVES Verified 01/27/24 15:29 sulfamethoxazole Allergy Severe HIVES Verified 01/27/24 15:29 [From BACTRIM] trimethoprim [From BACTRIM] Allergy Severe HIVES Verified 01/27/24 15:29 tetracycline Allergy Unknown Verified 01/27/24 15:29 Review of Systems 2 Review of Systems: Yes all other systems are reviewed and are negative PMFSH Past Medical History Medical History Allergies Back pain Hearing loss Social History Social History Alcohol intake: unknown Patient Tobacco Use Status: Former Tobacco user Smoked in Last 30 Days: No Use of substances other than those prescribed or required for medical reasons: No Advance Directives: No Advance Directives Information Provided: No Do you have a plan to hurt others: No Plan Physical Exam ED Vital Signs: Vital Signs - 24 hr 01/27/24 15:28 01/27/24 19:51 01/27/24 21:37 Temperature 98.3 F 98.1 F 97.5 F Pulse Rate 76 72 62 Respiratory Rate 18 16 16 Blood Pressure 142/65 H 141/61 H 143/70 H Pulse Oximetry 98 97 97 Oxygen Delivery Method Room Air Room Air Room Air BMI result Body Mass Index 23.0 Appearance: Alert. Oriented X3. No acute distress. Eyes: No pallor or icterus ENT: Pharynx normal. Oral Mucosa moist Neck: Normal inspection. Neck supple. CVS: Normal heart rate and rhythm. Pulses normal. Respiratory: No respiratory distress. Equal air entry bilateral, no wheezing/rales/rhonchi Abdomen: Soft and tender left lower quadrant no rebound tenderness or significant guarding Bowel sounds are present, no mass palpable, no CVA tenderness Skin: Skin warm and dry. Normal skin color. Normal skin turgor. Extremities: No lower extremity edema. No calf tenderness Neuro: Oriented X 3. No motor deficit. Course Course Course Narrative: RME performed by Aminta Jordan PA-C. Patient is a 73 year old, very hard of hearing, assigned female at presenting to the emergency department with left lower quadrant abdominal pain. Patient states the pain in her abdomen kept her up last night. Detailed physical exam and review of systems are deferred to the admissions clinician. Labs and swabs ordered. Patient placed back in the waiting room pending room availability and results. Medications Administered Discontinued Medications Generic Name Dose Route Start Last Admin Trade Name Freq PRN Reason Stop Dose Admin Ceftriaxone Sodium 1 gm/ 50 mls @ 100 mls/hr 01/27/24 21:17 01/27/24 23:00 Sodium Chloride IV 01/27/24 21:46 Infused ONCE ONE Infusion Sodium Chloride 1,000 mls @ 999 mls/hr 01/27/24 22:15 01/27/24 22:23 Ns IV 01/27/24 23:15 999 mls/hr .Q1H1M ONE Administration Morphine Sulfate 4 mg 01/27/24 22:14 01/27/24 22:26 Morphine Sulfate 4 Mg/Ml Cartridge IVPUSH 01/27/24 22:15 4 mg ONCE ONE Administration Protocol Ondansetron HCl 4 mg 01/27/24 22:14 01/27/24 22:26 Ondansetron Hcl 4 Mg/2 Ml Vial IVPUSH 01/27/24 22:15 4 mg ONCE ONE Administration Medical Decision Making Medical Decision Making [facility] Narrative: Patient with left lower abdominal pain with mild uncomplicated diverticulitis with UTI patient received IV antibiotics in the ER will discharge patient home on oral Ceftin and Flagyl advised to have liquid diet and slowly advanced as tolerated Lab Data [facility] Lab Attestation statement: I reviewed the patient's lab results. 01/27/24 15:47 01/27/24 15:47 Labs: Lab Results 01/27/24 01/27/24 01/27/24 Range/Units 15:47 17:22 21:42 WBC 12.8 H (4.8-10.8) X10*3/uL RBC 4.28 (4.20-5.50) X10*6/uL Hgb 14.0 (12.0-16.0) g/dl Hct 40.6 (37.0-47.0) % MCV 94.9 (80.0-98.0) fL MCH 32.7 (27.0-33.0) pg MCHC 34.5 (31.0-35.0) g/dl RDW 11.5 (11.0-16.0) % Plt Count 296 D (160-400) X10*3/uL MPV 8.8 L (9.4-12.3) fL Immature Gran % (Auto) 0.4 (0.0-0.4) % Neut % (Auto) 75.1 H (45-73) % Lymph % (Auto) 13.6 L (20-40) % [place] % (Auto) 8.5 (2-11) % Eos % (Auto) 2.0 (0-4) % Baso % (Auto) 0.4 (0-2) % Lymph # (Auto) 1.7 (1.2-4.9) X10*3/uL [place] # (Auto) 1.1 (0.1-1.2) X10*3/uL Eos # (Auto) 0.3 (0.0-0.4) X10*3/uL Baso # (Auto) 0.1 (0.0-0.2) X10*3/uL Abs Immat Gran (auto) 0.05 H (0.00-0.03) X10*3/uL Absolute Neuts (auto) 9.6 H (2.0-8.3) x10*3/uL Absolute Nucleated RBC 0.000 (0.0-0.012) X10*3/uL Nucleated RBC % (auto) 0.0 (0.0-0.2) /100WBC Sodium 140 (135-145) mmol/L Potassium 3.7 (3.3-5.1) mmol/L Chloride 105 (96-108) mmol/L Carbon Dioxide 26 (22-29) mmol/L Anion Gap 13 (12-20) BUN 8 L (9-16) mg/dL Creatinine 0.76 (0.5-1.4) mg/dL Estim Creat Clear Calc 48.0 Estimated GFR > 60 Random Glucose 98 (60-115) mg/dL Lactic Acid 0.7 (0.5-2.0) mmol/L Calcium 9.5 (8.4-10.2) mg/dL Magnesium 2.1 (1.6-2.6) mg/dL Total Bilirubin 0.4 (0.0-1.0) mg/dL AST 11 (5-31) U/L ALT 10 (0-31) U/L Alkaline Phosphatase 60 (39-117) U/L Total Protein 7.0 (6.5-8.0) g/dL Albumin 4.2 (3.5-5.0) g/dL Urine Color Yellow Urine Appearance Clear Urine pH 6.0 (5.0-9.0) Ur Specific [place] 1.010 (1.005-1.025) Urine Protein Negative (Neg-Trace) mg/dL Urine Glucose (UA) Negative (Negative) mg/dL Urine Ketones Negative (Negative) mg/dL Urine Blood Negative (Negative) Urine Nitrite Positive H (Negative) Ur Leukocyte Esterase Small (1+) H (Negative) Urine RBC 0-2 (0-2) /HPF Urine WBC 6-10 H (0-5) /HPF Ur Squamous Epith Cells 0-2 (0-2) /HPF Urine Bacteria Trace (None Seen) Hyaline Casts 0-2 (0-2) /LPF Influenza Type A (PCR) NEGATIVE (Negative) Influenza Type B (PCR) NEGATIVE (Negative) RSV RNA Qual (PCR) NEGATIVE (Negative) SARS-CoV-2 RNA (RT-PCR) NEGATIVE (Negative) Independent Interpretation I performed an independent interpretation of an: CT Scan Radiology Impression Discussion of test interpretation with radiology: I have reviewed the radiologist's reading. Radiologist Impression: [address] [id number] [address] Scan Report Signed Patient: Annalisa Cruz MR#: [id number] : 1950 Acct:[id number] Age/Sex: 73 / F ADM Date: 01/27/24 Loc: .ED Attending Dr: Ordering Physician: Theodore Mast MD Date of Service: 01/27/24 Procedure(s): CT abdomen pelvis wo IV con Accession Number(s): [id number] cc: HIMA MORGAN MD; Theodore Mast MD~ EXAMINATION: CT ABDOMEN AND PELVIS WITHOUT IV CONTRAST CLINICAL INFORMATION: Diverticulitis COMPARISON: CT abdomen/pelvis September 23, 2021 TECHNIQUE: Multiple axial images were obtained from the superior aspect of the liver through the pubic symphysis without intravenous contrast. Images were evaluated on independent dedicated 3-D workstation and 3-D images were reconstructed with concurrent radiologist supervision and subsequently interpreted. Oral contrast was not administered. This CT examination was performed using dose optimization techniques as appropriate, variously including the following: *Automated exposure control *Adjustment of mA and/or kV according to patient size (this includes techniques or standardized protocols for targeted exams where dose is matched to indication/reason for exam; i.e. extremities or head) *Use of iterative reconstruction technique DLP: 385 mGy-cm FINDINGS: LUNG BASES: Linear atelectasis CARDIOMEDIASTINUM: The visualized heart is normal in size without pericardial effusion. No coronary artery calcification. LIVER: Homogeneous in attenuation. Normal in size. GALLBLADDER: Dependently layering cholelithiasis. Noninflamed. BILIARY SYSTEM: No intrahepatic or extrahepatic biliary dilation. PANCREAS: Homogeneous in attenuation. SPLEEN: Normal in size. GENITOURINARY: No contour deforming masses. No perinephric fluid collection. Nonobstructing 3 mm left lower pole renal calculus. Left lower pole simple renal cysts; no follow-up needed. No hydroureteronephrosis. ADRENAL GLANDS: Unremarkable. REPRODUCTIVE: Uterus and and bilateral adnexa are unremarkable. GASTROINTESTINAL: The visualized alimentary tract is normal in course. Questionable colonic wall thickening along the proximal sigmoid. Severe diverticular disease of the distal descending and sigmoid colon No evidence of obstruction. APPENDIX: The appendix is seen in its entirety and is unremarkable. PERITONEUM: No pneumoperitoneum. No intra-abdominal fluid collection. VASCULATURE: No abdominal aortic aneurysm. LYMPH NODES: No pathologically enlarged abdominal or pelvic lymph nodes. SOFT TISSUES/MUSCULOSKELETAL: Compression deformity of T9 vertebral body. Dextroscoliosis and degenerative changes. CT/CT abdomen pelvis wo IV con IMPRESSION: 1. Though limited study due to lack of intravenous contrast, suspected diverticulitis in the proximal sigmoid colon. No obvious large abscess on this limited study. 2. Nonobstructing left lower pole renal calculus. Fleischner guidelines were followed. Electronically signed by: Tc Brown DO 01/27/2024 10:56 PM EDT RP Discharge Plan Discharge Clinical Impression: Urinary tract infection, Diverticulitis Patient Disposition: Home, Self-Care Instructions: Diverticulitis (ED), Urinary Tract Infection in Older Adults (ED) Additional Instructions: Drink plenty of fluids Have liquid diet advanced slowly Take antibiotic as prescribed Pain medicine as prescribed Report to ER if pain gets worse/vomiting/fever/blood in stool Prescriptions: New metronidazole 500 mg tablet 500 mg PO TID Qty: 30 0RF tramadol 50 mg tablet 50 mg PO Q8-10H PRN (Reason: pain) Qty: 12 0RF cefuroxime axetil 500 mg tablet 500 mg PO BID 10 Days Qty: 20 0RF No Action cefuroxime axetil 250 mg tablet 250 mg PO BID Qty: 19 0RF metronidazole 250 mg tablet 250 mg PO BID Qty: 19 0RF prednisone 20 mg tablet 40 mg PO DAILY 4 Days Qty: 8 0RF famotidine [Pepcid] 20 mg tablet 20 mg PO DAILY Qty: 10 0RF Print Language: Citizen Of [place]
[2024-01-27 15:53] LABS: MANUAL DIFF FLAG NO
[2024-01-27 15:56] LABS: Basophils Absolute Auto 0.1 X10*3/uL (0.0-0.2); Basophils Percent Auto 0.4 % (0-2); Eosinophils Absolute Auto 0.3 X10*3/uL (0.0-0.4); Hematocrit 40.6 % (37.0-47.0); Imm Gran Abs Auto 0.05 X10*3/uL (0.00-0.03); Imm Gran Pct Auto 0.4 % (0.0-0.4); Lymphocytes Absolute Auto 1.7 X10*3/uL (1.2-4.9); Lymphocytes Percent Auto 13.6 % (20-40); Mean Corpuscular HGB Conc 34.5 g/dl (31.0-35.0); Mean Corpuscular Hemoglobin 32.7 pg (27.0-33.0); Mean Corpuscular Volume 94.9 fL (80.0-98.0); Mean Platelet Volume 8.8 fL (9.4-12.3); Monocytes Absolute Auto 1.1 X10*3/uL (0.1-1.2); Monocytes Percent Auto 8.5 % (2-11); Neutrophils Absolute Auto 9.6 x10*3/uL (2.0-8.3); Neutrophils Percent Auto 75.1 % (45-73); Platelet Count 296 X10*3/uL (160-400); Red Blood Count 4.28 X10*6/uL (4.20-5.50); Red Cell Distribution Width 11.5 % (11.0-16.0); White Blood Count 12.8 X10*3/uL (4.8-10.8)
[2024-01-27 16:16] LABS: Alanine Aminotransferase 10 U/L (0-31); Albumin Level 4.2 g/dL (3.5-5.0); Alkaline Phosphatase 60 U/L (39-117); Anion Gap 13 (12-20); Aspartate Amino Transferase 11 U/L (5-31); Bilirubin Total 0.4 mg/dL (0.0-1.0); Blood Urea Nitrogen 8 mg/dL (9-16); Calcium 9.5 mg/dL (8.4-10.2); Carbon Dioxide 26 mmol/L (22-29); Chloride 105 mmol/L (96-108); Estimated Glomerular Filt Rate > 60; Glucose Random 98 mg/dL (60-115); Magnesium 2.1 mg/dL (1.6-2.6); Potassium 3.7 mmol/L (3.3-5.1); Sodium 140 mmol/L (135-145)
[2024-01-27 16:33] LABS: Influenza A PCR NEGATIVE (Negative); Influenza B PCR NEGATIVE (Negative); Resp Syncy Virus RNA Qual PCR NEGATIVE (Negative); SARS COV2 PCR INHOUSE NEGATIVE (Negative)
[2024-01-27 17:43] LABS: Appearance Urine Clear; Color Urine Yellow; Glucose Urine UA Negative (Negative); Leukocyte Esterase Urine Small (1+) (Negative); Nitrite Urine Positive (Negative); UMIC TRIGGER UACC YES; Urine Blood Negative (Negative); Urine Ketones Negative (Negative); Urine Protein Negative (Neg-Trace)
[2024-01-27 17:49] LABS: Bacteria Urine Trace (None Seen); Hyaline Casts Urine 0-2 /LPF (0-2); RBC Urine 0-2 /HPF (0-2); Squamous Epithelial Cell Urine 0-2 /HPF (0-2); UACC Culture Trigger YES
[2024-01-27 19:51] VITALS: BP 141/61; PULSE 72; RESP 16; TEMP 36.7; O2SAT 97
[2024-01-27 21:37] VITALS: BP 143/70; PULSE 62; RESP 16; TEMP 36.4; O2SAT 97
[2024-01-27 21:57] LABS: Lactic Acid 0.7 mmol/L (0.5-2.0)
[2024-01-27] MEDS: cefTRIAXone sodium 1 GM in 0.9 % Sodium Chloride 50 ML IV (22:23)
[2024-01-27] MEDS: 0.9 % Sodium Chloride 1,000 ML 999 ML IV (22:23)
[2024-01-27] MEDS: ondansetron HCL 4 MG/2 ML VIAL IVPUSH (22:26)
[2024-01-27] MEDS: Morphine Sulfate 4 MG/ML CARTRIDGE IVPUSH (22:26)
[2024-01-28 00:12] VITALS: BP 134/72; PULSE 79; RESP 18; O2SAT 97
[2024-01-28] MEDS: metroNIDAZOLE 500 MG TABLET PO (00:20)
[2024-01-28 00:33] VITALS: BP 134/72; PULSE 79; RESP 18; TEMP 37.1; O2SAT 97
== END 2024-01-28 00:37 | disposition home or self-care (01) ==
PROVIDERS: Physician Assistant Medical; Emergency Provider Internal Medicine; PCP Internal Medicine
DX: N39.0 Urinary tract infection, site not specified (principal); K57.92 Diverticulitis of intestine, part unspecified, without perforation or abscess without bleeding; Z03.818 Encounter for observation for suspected exposure to other biological agents ruled out
CPT/HCPCS: 0241U; 36415; 74176; 80053; 81001; 83605; 83735; 85025; 87086; 96361; 96365; 96375; 99284; J0696; J2270; J2405

== ENCOUNTER 2024-02-11 14:00 | Emergency (ER) | payer MEDICARE, SELFPAY ==
--- NOTE | ~2024-02-11 | XR_ITS ---
EXAMINATION: XR ABDOMEN KUB CLINICAL INDICATION: Constipation COMPARISON: CT abdomen and pelvis 01/27/2024 TECHNIQUE: AP view of the abdomen. FINDINGS: Degenerative changes are present in the spine with biconvex thoracolumbar scoliosis. The bowel gas pattern is normal with no evidence of ileus or obstruction. No unusual soft tissue calcifications are noted. XR/XR KUB IMPRESSION: No evidence of bowel obstruction. Electronically signed by: Luis Jeong MD 02/11/2024 08:19 PM EDT
[2024-02-11 14:03] VITALS: BP 139/74; PULSE 91; RESP 18; TEMP 36.6; O2SAT 98; BMI 22.3
--- NOTE | 2024-02-11 14:03 | ED.GENADULT ---
HPI - General Adult General Chief complaint: General Medical Stated complaint: seen 01/26 , not feeling better Time Seen by Provider: 02/11/24 18:30 Source: patient, RN notes reviewed and old records reviewed Mode of arrival: ambulatory Limitations: no limitations History of Present Illness ED Provider: Angeline HPI narrative: 73-year-old female presents for evaluation of lower abdominal discomfort. Patient was seen here on 01/27/2024 She was diagnosed with a UTI and diverticulitis. She was discharged with metronidazole and cefuroxime due to multiple medication allergies She completed a 10 day course of the antibiotics. She reports that she had diarrhea until 2 days ago. She has not had any diarrhea for the last 2 days but also reports having had a solid She states that she has some lower abdominal discomfort and she feels maybe another UTI. Her pain is a 2/10 Related Data Previous Rx's ?Medication ?Instructions ?Recorded famotidine 20 mg tablet (Pepcid) 20 mg PO DAILY #10 tabs 03/18/21 prednisone 20 mg tablet 40 mg (2 x 20 mg) PO DAILY 4 days 03/18/21 #8 tabs cefuroxime axetil 250 mg tablet 250 mg PO BID #19 tabs 09/23/21 metronidazole 250 mg tablet 250 mg PO BID #19 tabs 09/23/21 cefuroxime axetil 500 mg tablet 500 mg PO BID 10 days #20 tabs 01/28/24 metronidazole 500 mg tablet 500 mg PO TID #30 tabs 01/28/24 tramadol 50 mg tablet 50 mg PO Q8-10H PRN pain #12 tabs 01/28/24 Allergies Allergy/AdvReac Type Severity Reaction Status Date / Time azithromycin [AZITHROMYCIN] Allergy Severe HIVES Verified 02/11/24 14:05 ciprofloxacin [CIPROFLOXACIN] Allergy Severe FEET BLACK Verified 02/11/24 14:05 erythromycin base Allergy Severe HIVES Verified 02/11/24 14:05 [ERYTHROMYCIN BASE] Penicillins [PENICILLINS] Allergy Severe HIVES Verified 02/11/24 14:05 sulfamethoxazole Allergy Severe HIVES Verified 02/11/24 14:05 [From BACTRIM] trimethoprim [From BACTRIM] Allergy Severe HIVES Verified 02/11/24 14:05 tetracycline Allergy Unknown Verified 02/11/24 14:05 Review of Systems Constitutional: Constitutional: Denies body ache(s), Denies chills and Denies fever(s) Eyes: Eyes: Denies blurry vision ENT: Denies vertigo and Denies dizziness Cardiovascular: Cardiovascular: Denies chest pain and Denies dyspnea Respiratory: Respiratory: Denies cough and Denies dyspnea Gastrointestinal: Gastrointestinal: Reports abdominal pain, Denies diarrhea, Denies loose stools, Denies nausea and Denies vomiting Genitourinary: Genitourinary: Denies dysuria Musculoskeletal: Musculoskeletal: Denies back pain Integumentary/Breasts: Skin/Breast: Denies rash Neurologic: Denies vertigo and Denies dizziness [facility] Past Medical History Medical History Allergies Back pain Hearing loss Social History Social History Alcohol intake: current Alcohol intake frequency: holidays/special occasions only Alcohol type: hard liquor Patient Tobacco Use Status: Former Tobacco user Smoked in Last 30 Days: Yes Use of substances other than those prescribed or required for medical reasons: No Advance Directives: No Advance Directives Information Provided: No Do you have a plan to hurt others: No Plan Physical Exam ED Vital Signs: Vital Signs - 24 hr 02/11/24 14:03 02/11/24 18:27 02/11/24 19:44 Temperature 97.9 F 98.5 F 98.4 F Pulse Rate 91 57 52 Respiratory Rate 18 16 16 Blood Pressure 139/74 148/62 H 149/66 H Pulse Oximetry 98 100 97 Oxygen Delivery Method Room Air Room Air Room Air BMI result Body Mass Index 22.3 Const General: healthy appearing, comfortable, no acute distress, alert and awake Nutritional Appearance: well nourished Orientation/consciousness: patient oriented x3 HENMT Head: Yes normocephalic and Yes atraumatic Eyes Eyelids: Yes eyelids normal Conjunctivae: conjunctivae normal Sclerae: sclerae normal Corneas: corneas normal Pupils: Equal, round and reactive pupils present EOM: EOMs intact bilaterally Neck Neck: Yes full ROM Resp Effort & Inspection: normal respiratory effort, able to speak in complete sentences and not labored GI Inspection: No distended Palpation (GI): Soft to palpation, not firm, nontender, no guarding and not rigid Auscultation: normoactive bowel sounds Skin General skin exam: elasticity normal Neuro General: patient oriented x3 Cranial nerves: Yes Equal, round and reactive pupils present and Yes Bilaterally intact EOM present Cognition (Neuro): normal cognition Extrem Other: Moving all extremities well without any obvious deformities Course Course Course Narrative: This is a rapid medical exam performed by Alessandro Iyer NP: Additional HPI, ROS, PE not included below will be deferred to primary provider. Patient is a 73-year-old female presenting with complaint of dysuria, urinary frequency, lower abdominal pain and diarrhea x 2 weeks, small amount of bright red rectal bleeding, mild nausea. Seen here on 01/26 and treated for UTI/diverticulitis. Plan: labs, UA Medical Decision Making Medical Decision Making MDM Narrative: 73-year-old female presents for evaluation of lower abdominal discomfort. Her she has no noted abdominal discomfort. While I evaluate her she states that she has no pain whatsoever. Her abdominal exam is reassuring, she has no tenderness, rebound or guarding. There was no abdominal distention. Her urinalysis is clear, her white count has resolved from 2 weeks ago. I do not see any indication for repeat scan at this time, her vital signs are stable, I have a low suspicion for persistent diverticulitis or complicated diverticulitis. I did order a KUB to evaluate for constipation/obstructive process. Differential Diagnosis Differential Diagnoses: The differential diagnosis associated with the presentation includes Abdominal pain UTI Diverticulitis Constipation Lab Data [facility] Lab Attestation statement: I reviewed the patient's lab results. No leukocytosis or anemia. Normal platelet count. No electrolyte abnormalities 02/11/24 15:09 02/11/24 15:09 Labs: Lab Results 02/11/24 Range/Units 15:09 WBC 7.0 (4.8-10.8) X10*3/uL RBC 4.51 (4.20-5.50) X10*6/uL Hgb 14.5 (12.0-16.0) g/dl Hct 42.4 (37.0-47.0) % MCV 94.0 (80.0-98.0) fL MCH 32.2 (27.0-33.0) pg MCHC 34.2 (31.0-35.0) g/dl RDW 11.9 (11.0-16.0) % Plt Count 244 (160-400) X10*3/uL MPV 9.1 L (9.4-12.3) fL Immature Gran % (Auto) 0.4 (0.0-0.4) % Neut % (Auto) 55.6 (45-73) % Lymph % (Auto) 30.3 (20-40) % [place] % (Auto) 9.0 (2-11) % Eos % (Auto) 3.4 (0-4) % Baso % (Auto) 1.3 (0-2) % Lymph # (Auto) 2.1 (1.2-4.9) X10*3/uL [place] # (Auto) 0.6 (0.1-1.2) X10*3/uL Eos # (Auto) 0.2 (0.0-0.4) X10*3/uL Baso # (Auto) 0.1 (0.0-0.2) X10*3/uL Abs Immat Gran (auto) 0.03 (0.00-0.03) X10*3/uL Absolute Neuts (auto) 3.9 (2.0-8.3) x10*3/uL Absolute Nucleated RBC 0.000 (0.0-0.012) X10*3/uL Nucleated RBC % (auto) 0.0 (0.0-0.2) /100WBC Sodium 141 (135-145) mmol/L Potassium 3.8 (3.3-5.1) mmol/L Chloride 105 (96-108) mmol/L Carbon Dioxide 27 (22-29) mmol/L Anion Gap 13 (12-20) BUN 10 (9-16) mg/dL Creatinine 0.81 (0.5-1.4) mg/dL Estim Creat Clear Calc 45.1 Estimated GFR > 60 Random Glucose 95 (60-115) mg/dL Calcium 9.5 (8.4-10.2) mg/dL Total Bilirubin 0.3 (0.0-1.0) mg/dL AST 15 (5-31) U/L ALT 13 (0-31) U/L Alkaline Phosphatase 44 (39-117) U/L Total Protein 6.9 (6.5-8.0) g/dL Albumin 4.3 (3.5-5.0) g/dL Urine Color Yellow Urine Appearance Clear Urine pH 7.0 (5.0-9.0) Ur Specific [place] <= 1.005 (1.005-1.025) Urine Protein Negative (Neg-Trace) mg/dL Urine Glucose (UA) Negative (Negative) mg/dL Urine Ketones Negative (Negative) mg/dL Urine Blood Negative (Negative) Urine Nitrite Negative (Negative) Ur Leukocyte Esterase Negative (Negative) Independent Interpretation I performed an independent interpretation of an: Plain X-Ray Interpretation: Agree with Radiology interpretation, no obvious obstruction Radiology Impression Discussion of test interpretation with radiology: I have reviewed the radiologist's reading. Radiologist Impression: FINDINGS: Degenerative changes are present in the spine with biconvex thoracolumbar scoliosis. The bowel gas pattern is normal with no evidence of ileus or obstruction. No unusual soft tissue calcifications are noted. XR/XR KUB IMPRESSION: No evidence of bowel obstruction. Electronically signed by: Luis Jeong MD 02/11/2024 08:19 PM EDT RP Discharge Plan Discharge Clinical Impression: Abdominal pain Patient Disposition: Home, Self-Care Instructions: Abdominal Pain (ED) Additional Instructions: Your workup in the ER today was reassuring Your blood work is within normal limits. Your urinalysis did not show any signs of infection. Your diarrhea was likely related to the antibiotics were using I recommend a high-fiber diet but I would not take any laxatives, as this may cause persistent diarrhea again Prescriptions: No Action cefuroxime axetil 250 mg tablet 250 mg PO BID Qty: 19 0RF metronidazole 250 mg tablet 250 mg PO BID Qty: 19 0RF prednisone 20 mg tablet 40 mg PO DAILY 4 Days Qty: 8 0RF famotidine [Pepcid] 20 mg tablet 20 mg PO DAILY Qty: 10 0RF metronidazole 500 mg tablet 500 mg PO TID Qty: 30 0RF tramadol 50 mg tablet 50 mg PO Q8-10H PRN (Reason: pain) Qty: 12 0RF cefuroxime axetil 500 mg tablet 500 mg PO BID 10 Days Qty: 20 0RF Print Language: Syrian
[2024-02-11 15:15] LABS: MANUAL DIFF FLAG NO
[2024-02-11 15:17] LABS: Appearance Urine Clear; Basophils Absolute Auto 0.1 X10*3/uL (0.0-0.2); Basophils Percent Auto 1.3 % (0-2); Color Urine Yellow; Eosinophils Absolute Auto 0.2 X10*3/uL (0.0-0.4); Eosinophils Percent Auto 3.4 % (0-4); Glucose Urine UA Negative (Negative); Hematocrit 42.4 % (37.0-47.0); Hemoglobin 14.5 g/dl (12.0-16.0); Imm Gran Abs Auto 0.03 X10*3/uL (0.00-0.03); Imm Gran Pct Auto 0.4 % (0.0-0.4); Leukocyte Esterase Urine Negative (Negative); Lymphocytes Absolute Auto 2.1 X10*3/uL (1.2-4.9); Lymphocytes Percent Auto 30.3 % (20-40); Mean Corpuscular HGB Conc 34.2 g/dl (31.0-35.0); Mean Corpuscular Hemoglobin 32.2 pg (27.0-33.0); Mean Platelet Volume 9.1 fL (9.4-12.3); Monocytes Absolute Auto 0.6 X10*3/uL (0.1-1.2); Neutrophils Absolute Auto 3.9 x10*3/uL (2.0-8.3); Neutrophils Percent Auto 55.6 % (45-73); Nitrite Urine Negative (Negative); Platelet Count 244 X10*3/uL (160-400); Red Blood Count 4.51 X10*6/uL (4.20-5.50); Red Cell Distribution Width 11.9 % (11.0-16.0); Specific Gravity - Urine <= 1.005 (1.005-1.025); Urine Blood Negative (Negative); Urine Ketones Negative (Negative); Urine Protein Negative (Neg-Trace)
[2024-02-11 15:35] LABS: Alanine Aminotransferase 13 U/L (0-31); Albumin Level 4.3 g/dL (3.5-5.0); Alkaline Phosphatase 44 U/L (39-117); Anion Gap 13 (12-20); Aspartate Amino Transferase 15 U/L (5-31); Bilirubin Total 0.3 mg/dL (0.0-1.0); Blood Urea Nitrogen 10 mg/dL (9-16); Calcium 9.5 mg/dL (8.4-10.2); Carbon Dioxide 27 mmol/L (22-29); Chloride 105 mmol/L (96-108); Creatinine Clr Calc Pharmacy 45.1; Estimated Glomerular Filt Rate > 60; Glucose Random 95 mg/dL (60-115); Potassium 3.8 mmol/L (3.3-5.1); Sodium 141 mmol/L (135-145); Total Protein 6.9 g/dL (6.5-8.0)
[2024-02-11 18:27] VITALS: BP 148/62; PULSE 57; RESP 16; TEMP 36.9; O2SAT 100
--- NOTE | 2024-02-11 18:29 | MHC.EDTECH ---
This pct just assumed care of patient ,vitals taken and Patient was change into a hospital attire ,call [facility] within pt reach .
--- NOTE | 2024-02-11 18:32 | PC.NURSE ---
Patient reports was seen in Ed a few weeks ago and was dx with uti and diverticultis . patient states completed 10 day course. states has been having loose stool sup until 2 days ago but feels pressure and bloating in her lower abdomen , denies pain states just worried about diarrhea
--- NOTE | 2024-02-11 19:10 | PC.NURSE ---
Assumed care of pt. Pt lying on stretcher, no acute distress at this time.
[2024-02-11 19:44] VITALS: BP 149/66; PULSE 52; RESP 16; TEMP 36.9; O2SAT 97
[2024-02-11 21:16] VITALS: BP 138/68; PULSE 60; RESP 18; TEMP 36.9; O2SAT 98
== END 2024-02-11 21:23 | disposition home or self-care (01) ==
PROVIDERS: Registered Nurse Emergency; Emergency Provider Internal Medicine; PCP Internal Medicine
DX: R10.9 Unspecified abdominal pain (principal)
CPT/HCPCS: 36415; 74018; 80053; 81003; 85025; 99283; 99284